=== PATIENT | male | born 1990 | race African-American/Black ===

== ENCOUNTER 2018-01-03 00:26 | Emergency (ER) ==
[2018-01-03] MEDS ORDERED: PROTONIX IV IVP STA (00:30)
[2018-01-03] MEDS ORDERED: GI COCKTAIL PO STA (00:31)
--- NOTE | 2018-01-03 02:02 | CT ---
Exam: CT of the chest without contrast History: Chest pain Technique: [address] of the chest without intravascular contrast FINDINGS: The lung windows show no pulmonary parenchymal abnormalities. The heart, great vessels an d pericardium appear normal by noncontrast CT. No abnormality of the upper abdomen. Impression: 1. No abnormality of the chest.
[2018-01-03 02:56] VITALS: BP 134/96; TEMP 98.1
--- NOTE | 2018-01-03 03:03 | ED.PDOC ---
General ED Provider: Dr. NICOLASA ADAIR-ER Chief Complaint: Chest Pain Stated Complaint: im hurting Time Seen by Physician: 03:01 Mode of Arrival: Walk-In Information Source: Patient Exam Limitations: No limitations Nursing and Triage Documentation Reviewed and Agree: Yes Does patient meet sepsis criteria?: No System Inflammatory Response Syndrome: Not Applicable Sepsis Protocol: For patient's 13 years and over: Temp is 96.8 and below OR 101 and greater Pulse >90 BPM Resp >20/minute Acutely Altered Mental Status Are patient's symptoms suggestive of a new infection, such as: -Pneumonia -Skin, Soft Tissue -Endocarditis -UTI -Bone, Joint Infection -Implantable Device -Acute Abdominal Infection -Wound Infection -Meningitis -Blood Stream Catheter Infection -Unknown Cardiovascular Complaint Exam - Chest Pain Complaint/Exam Onset: Gradual Duration: several days Symptoms Are: Still present Initial Severity: Mild Current Severity: Moderate Location: Reports: Midsternal Character: Reports: Dull, Aching Aggravating: Reports: None Related Surgical History: Reports: None History of Healthcare-Acquired Pneumonia: Reports: No Pulmonary Embolism Risk Factors: Reports: None Prior Care for this Complaint: No Recent Stress Test: No Recent Echo/LV Function: No JVD Present: No Subcutaneous Emphysema Present: No Diminshed Breath Sounds: No Reproducible Chest Wall Pain: No Bilateral Pulses Present: Yes Unequal Pulses Noted: No Review of Systems - Review Of Systems Constitutional: Reports: No symptoms Eyes: Reports: No symptoms Ears, Nose, Mouth, Throat: Reports: No symptoms Respiratory: Reports: No symptoms Cardiac: Reports: Chest pain GI: Reports: No symptoms : Reports: No symptoms Musculoskeletal: Reports: No symptoms Skin: Reports: No symptoms Neurological: Reports: No symptoms Endocrine: Reports: No symptoms Hematologic/Lymphatic: Reports: No symptoms All Other Systems: Reviewed and Negative Past Medical History - Past Medical History Previously Healthy: Yes Endocrine: Reports: Unknown Cardiovascular: Reports: Unknown Respiratory: Reports: Unknown Hematological: Reports: Unknown Gastrointestinal: Reports: Unknown Genitourinary: Reports: Unknown Neuro/Psych: Reports: Unknown Musculoskeletal: Reports: Unknown Cancer: Reports: Unknown - Surgical History General Surgical History: Reports: Unknown - Family History Family History: Reports: Unknown - Social History Smoking Status: Former smoker Hx Substance Use: No Alcohol Screening: Occasionally - Immunizations Tetanus Shot up to Date: Yes Physical Exam - Physical Exam Appearance: Well-appearing, No pain distress, Well-nourished Pain Distress: Mild Eyes: DONNELL, EOMI, Conjunctiva clear ENT: Ears normal, Nose normal, Oropharynx normal Neck: Supple Respiratory: Airway patent, Breath sounds clear, Breath sounds equal, Respirations nonlabored Cardiovascular: RRR, Pulses normal, No rub, No murmur GI/: Soft Musculoskeletal: Normal strength, ROM intact, No edema, No calf tenderness Skin: Warm, Dry, Normal color Neurological: Sensation intact, Motor intact, Reflexes intact, Cranial nerves intact, Alert, Oriented Psychiatric: Affect appropriate, Mood appropriate Interpretation - Radiology Interpretation Radiology Interpretation By: Radiologist Radiology Results: Negative Exam Interpreted: CT Scan - EKG Interpretation Time of EKG #1: 03:02 Rate: Normal Rhythm: Sinus Ectopy: None [place]: [place] ST Segment: Normal Interpretation: no acute changes Re-Evaluation - Re-Evaluation Time of Re-Evaluation: 03:02 Status: Improved Pain Level: 0 Appearance: NAD Lungs: Clear Skin: Warm and Dry Neuro: Alert and Oriented X3 CV: RRR Critical Care Note - Critical Care Note Total Time (mins): 0 Course - Course Hematology/Chemistry: 01/03/18 00:44 01/03/18 00:44 Orders, Labs, Meds: Lab Review 01/03/18 01/03/18 01/03/18 00:44 00:44 00:44 WBC 5.29 RBC 5.22 Hgb 15.8 Hct 45.8 MCV 87.7 MCH 30.3 MCHC 34.5 RDW Coeff of Casie 12.5 Plt Count 201 Immature Gran % (Auto) 0.6 Neut % (Auto) 44.1 Lymph % (Auto) 45.2 Dickson % (Auto) 7.4 Eos % (Auto) 2.3 Baso % (Auto) 0.4 Immature Gran # (Auto) 0.0 Neut # (Auto) 2.3 Lymph # (Auto) 2.4 Dickson # (Auto) 0.4 Eos # (Auto) 0.1 Baso # (Auto) 0.0 D-Dimer (Manual) 189.25 Sodium 138 Potassium 4.0 Chloride 102 Carbon Dioxide 27 Anion Gap 13.0 BUN 12 Creatinine 1.00 Estimated GFR (MDRD) 109.00 BUN/Creatinine Ratio 12.00 Glucose 111 H Calcium 9.4 Total Bilirubin 0.4 AST 24 ALT 31 Alkaline Phosphatase 62 Total Creatine Kinase 399 CK-MB (CK-2) 3.6 CK-MB (CK-2) % 0.91728 Troponin I < 0.0100 Total Protein 7.3 Albumin 3.7 Globulin 3.6 Albumin/Globulin Ratio 1.03 Amylase 66 Lipase 12 Orders Category Date Time Status EKG-(ED ONLY) Stat CARDIO 01/03/18 00:29 Ordered EKG-(ED ONLY) Timed CARDIO 01/03/18 05:00 Ordered NPO REMINDER: IMAGING ONCE CARE 01/03/18 00:30 Completed Emr Analyst [ED LINSEED OIL ORDER FILLER APPLIED] .ONCE EMERGENCY 01/03/18 00:30 Active IV [ED IV/MEDIPORT/POWERPORT] .ONCE EMERGENCY 01/03/18 00:30 Active AMYLASE Stat LAB 01/03/18 00:44 Completed CBC W/ AUTO DIFF Stat LAB 01/03/18 00:44 Completed CK [CREATINE KINASE] Timed LAB 01/03/18 05:00 Ordered COMPREHENSIVE METABOLIC PANEL Stat LAB 01/03/18 00:44 Completed CREATINE KINASE Stat LAB 01/03/18 00:44 Completed D-DIMER Stat LAB 01/03/18 00:44 Completed LIPASE Stat LAB 01/03/18 00:44 Completed TROPONIN I Stat LAB 01/03/18 00:44 Completed TROPONIN I Timed LAB 01/03/18 05:00 Ordered 0.9 % Sodium Chloride [Saline Flush] MEDS 01/03/18 00:30 Ordered 1 syr IVF PRN PRN Mag-Al Plus//Lidocaine [Gi Cocktail] MEDS 01/03/18 00:31 Discontinued 30 ml PO ONCE STA Pantoprazole Sodium [Protonix IV] MEDS 01/03/18 00:30 Discontinued [address] ON[address] CT CHEST W/O CONTRAST Stat RADS 01/03/18 00:58 Completed Medications Generic Name Dose Route Start Last Admin Trade Name Freq PRN Reason Stop Dose Admin Sodium Chloride 1 syr 01/03/18 00:30 Saline Flush IVF PRN PRN To flush IV Discontinued Medications Generic Name Dose Route Start Last Admin Trade Name Freq PRN Reason Stop Dose Admin Al Hydroxide/Mg Hydroxide 30 ml 01/03/18 00:31 01/03/18 00:51 Gi Cocktail PO 01/03/18 00:32 30 ml ONCE STA Administration Pantoprazole Sodium 40 mg 01/03/18 00:30 01/03/18 00:51 Protonix Iv IVP 01/03/18 00:31 40 mg ONCE STA Administration we wantd to finish testing on mr hartley but he states he has to leave for work- -he asked him to stay but he declines so we could not finish testing for mr hartley Vital Signs: Temp Pulse Resp BP Pulse Ox 01/03/18 02:56 98.1 F 48 L 15 134/96 H 99 01/03/18 00:53 97.7 F 69 20 141/95 H 98 LINDA Risk Score LINDA Risk Score: Risk Score Odds of by 30D 0 0.1 (0.1-0.2) 1 0.3 (0.2-0.3) 2 0.4 (0.3-0.5) 3 0.7 (0.6-0.9) 4 1.2 (1.0-1.5) 5 2.2 (1.9-2.6) 6 3.0 (2.5-3.6) 7 4.8 (3.8-6.1) Departure - Departure Time of Disposition: 03:03 Disposition: AMA Discharge Problem: Chest pain Instructions: Chest Pain (ED) Condition: Good Pt referred to PMD for follow-up: Yes IPMP verified?: No Additional Instructions: return prn Allergies/Adverse Reactions: Allergies shellfish derived Adverse Reaction (Verified 01/03/18 01:00) Home Medications: Ambulatory Orders 1 [No Reported Medications] 01/03/18 Disposition Discussed With: Patient, Family
== END 2018-01-03 03:05 | disposition left against medical advice (07) ==
LOC: ED 00:26
DX: R07.9 Chest pain, unspecified (principal)
CPT/HCPCS: 36415; 80053; 82150; 82550; 82553; 83690; 84484; 85025; 85379; 93005; 93010; 96365; 99285